=== PATIENT | female | born 1955 | race Caucasian/White ===

== ENCOUNTER 2018-03-17 14:26 | Emergency (ER) | payer OTHER ==
[~2018-03-17] VITALS: Ht 157.5 cm; Wt 79.4 kg
--- NOTE | 2018-03-17 15:48 | PHYS DOC ---
Adult General Chief Complaint Chief Complaint: UPPER EXTREMITY INJURY HPI HPI 62-year-old female presents to ER after a fall off of a ladder. She reports she was approximately 3-4 feet up on a ladder when the ladder slipped causing her to fall onto her left side. Patient reports she did strike her left forehead on the floor denies any loss of consciousness. Patient denies any headache, dizziness, lightheadedness, tinnitus, vision changes, or neck pain. Patient reports she fell onto her left arm and has deformity to her left wrist. She reports she took ibuprofen at 6:30 this morning. Pain medication was offered during initial encounter and patient preferred no medication at this time. Patient had rings on her left hand which were removed. Pt is uncertain of last update on tetanus. Review of Systems Review of Systems Constitutional: Denies lethargy Eyes: Denies change in visual acuity or eye pain [] HENT: Denies nosebleed Respiratory: Denies cough or shortness of breath [] Cardiovascular: Denies CP/rib pain GI: Denies abdominal pain, nausea, vomiting : Denies incontinence Musculoskeletal: Denies back/neck pain. Reports lt shoulder/elbow/wrist pain- deformity lt wrist Integument: Reports abrasion lt wrist/palm of hand where she hit the ladder Neurologic: Denies headache, focal weakness or sensory changes. Denies dizziness or lightheadedness All other systems were reviewed and found to be within normal limits, except as documented in this note. Current Medications Current Medications Current Medications Medications (Trade) Dose Ordered Sig/June Start Time Stop Time Status Last Admin Dose Admin Diphtheria/ Tetanus/Acell Pertussis (Boostrix) 0.5 ml ONCE ONCE 03/17/18 20:30 03/17/18 20:31 DC 03/17/18 20:20 0.5 ML Fentanyl Citrate (Fentanyl 2ml Vial) 100 mcg 1X ONCE 03/17/18 19:30 03/17/18 19:31 DC 03/17/18 19:21 100 MCG Lidocaine HCl (Xylocaine 1% Pf 30ml Vial) 30 ml 1X ONCE 03/17/18 16:45 03/17/18 16:46 DC 03/17/18 19:19 30 ML Allergies Allergies Allergies Coded Allergies Type Severity Reaction Last Updated Verified No Known Drug Allergies 03/17/18 No Physical Exam Physical Exam Constitutional: Well developed, well nourished, no acute distress, non-toxic appearance. [] HENT: Normocephalic, hematoma with swelling lt forehead- no bleeding/open wound. Bilateral ears normal, oropharynx moist, no oral/dental injury, nose normal. [] Eyes: 3mm bilat. PERRLA, EOMI- no eye pain with movement, no nystagmus, conjunctiva normal, no discharge. [] Neck: Normal range of motion, no tenderness- no midline cervical tenderness on palp. no palp. deformity/crepitus, supple Cardiovascular:Heart rate regular rhythm, no murmur [] Lungs & Thorax: Bilateral breath sounds clear to auscultation. Resp. equal/ nonlabored. No chest wall tenderness or visible injury Abdomen: Bowel sounds normal, soft/nondistended, no tenderness, no masses, no pulsatile masses. [] Skin: Warm, dry, no erythema, no rash. [] Back: No tenderness on palp- no midline spinal tenderness or palp. deformity- no visible injury, no CVA tenderness. [] Extremities: Pelvis stable/nontender. Deformity lt wrist/forearm- abrasion to lt posterior wrist and small abrasion lt palm- no active bleeding, no cyanosis, decreased ROM lt wrist- cap. refill brisk all fingers and able to flex/extend all fingers lt hand. Tender to palp. lt elbow with no deformity and ROM intact. Tender palp. lt shoulder with no palp. deformity- able to perform ROM. ROM intact in other extremities with no c/o pain or abnorm. exam findings. Neurologic: Alert and oriented X 3, normal motor function, normal sensory function, no focal deficits noted. [] Psychologic: Affect normal, judgement normal, mood normal. [] Current Patient Data Vital Signs Vital Signs Date Time Temp Pulse Resp B/P (MAP) Pulse Ox O2 Delivery O2 Flow Rate FiO2 03/17/18 16:11 96.9 96 22 122/72 (89) Room Air 96.9 EKG EKG [] Radiology/Procedures Radiology/Procedures PROCEDURE: CT HEAD AND CERVICAL SPINE WO EXAM: Head and cervical spine CT without contrast. HISTORY: Fall. TECHNIQUE: Computed tomographic images of the head and cervical spine were obtained without contrast. *One or more of the following individualized dose reduction techniques were utilized for this examination: 1. Automated exposure control. 2. Adjustment of the mA and/or kV according to patient size. 3. Use of iterative reconstruction technique. COMPARISON: None. FINDINGS: Head: There is no intracranial hemorrhage. There is no mass effect or midline shift. There is no hydrocephalus. The lainez-white matter differential pattern is intact. There is a small left frontal scalp soft tissue hematoma. The orbits are unremarkable. There is a small left maxillary sinus mucous retention cyst. The mastoid air cells are clear. No calvarial lesion is seen. Cervical spine: There is minimal anterolisthesis of C4 on C5. There is degenerative endplate remodeling with disc space narrowing predominantly at C3-C4. There is facet arthropathy at multiple levels. There is no suspicious osseous lesion. There is no fracture. At C2-C3, there is mild left facet arthropathy. There is no stenosis. At C3-C4, there is a disc bulge and endplate osteophytosis. There is uncovertebral arthropathy. There is severe bilateral foraminal stenosis. At C4-C5, there is a disc bulge and endplate remodeling. There is mild left facet arthropathy. There is right uncovertebral arthropathy. There is mild right foraminal stenosis. At C5-C6, there is a disc bulge and endplate remodeling. There is left uncovertebral arthropathy. There is no stenosis. At C6-C7, there is no stenosis. IMPRESSION: 1. No acute intracranial finding or evidence of acute cervical spine trauma. 2. Small left frontal scalp soft tissue hematoma. 3. Multilevel degenerative change of the cervical spine, resulting in severe bilateral foraminal stenosis at C3-C4 and mild right foraminal stenosis at C4-C5. Electronically signed by: Marlin Abernathy MD (03/17/2018 4:47 PM) [place] [id number] DICTATED and SIGNED BY: MARLIN ABERNATHY MD DATE: 03/17/18 1642 PROCEDURE: ELBOW LEFT 2V EXAM: Left shoulder, 2 views; left elbow, 2 views; left wrist, 2 views. HISTORY: Fall. COMPARISON: None. FINDINGS: Left wrist: 2 views of the left wrist are obtained. There is a severely comminuted and displaced intra-articular fracture of the distal radial metaphysis. There is also a displaced fracture of the ulnar styloid and widening of the distal radial ulnar joint space. There is surrounding soft tissue swelling. Left shoulder: 2 views of the left shoulder obtained. There is no fracture, dislocation or subluxation. Left elbow: 2 views of the left elbow are obtained. There is no fracture, dislocation or subluxation. There is no joint effusion. IMPRESSION: Severely comminuted displaced distal radial metaphyseal fracture and displaced ulnar styloid fracture with subluxation or dislocation of the distal radioulnar joint. Electronically signed by: Marlin Abernathy MD (03/17/2018 4:21 PM) [place] [id number] DICTATED and SIGNED BY: MARLIN ABERNATHY MD DATE: 03/17/18 1620 PROCEDURE: CT LUMBAR SPINE WO CONTRAST CT lumbar spine without intravenous contrast History: Fall. Low back pain. Technique: Noncontrast CT of the lumbar spine was performed. Axial, sagittal, and coronal reconstructions were obtained. Exposure: One or more of the following individualized dose reduction techniques were utilized for this examination: 1. Automated exposure control 2. Adjustment of the mA and/or kV according to patient size 3. Use of iterative reconstruction technique Findings: 5 lumbar type vertebral bodies are present. There is moderate compression involving the L4 vertebral body. Fracture lines are evident, suggesting that fracture is recent. No significant retropulsion of fragments into the spinal canal is identified. There does appear to be increased density posterior to the vertebral body, could represent extruded disc material or possibly small epidural hematoma. There is thought to be no more than mild narrowing of the spinal canal at the superior L4 level. The superior endplate of L3 demonstrates concavity, although this is thought more likely to represent Schmorl's node. Multilevel degeneration is seen with multilevel facet hypertrophy as well as multilevel degenerative disc disease. Impression: 1. Moderate compression of the L4 vertebral body, thought to be acute versus subacute in chronology. 2. There does appear to be mildly dense material posterior to the compressed vertebral body at L4 in the anterior epidural space. This could represent extruded disc material or might represent epidural hematoma. There is at most mild spinal canal narrowing at superior L4 level.. Electronically signed by: Gonzales Lundberg MD (03/17/2018 5:54 PM) [facility] DICTATED and SIGNED BY: GONZALES LUNDBERG MD DATE: 03/17/18 3324 PROCEDURE: WRIST 2V LEFT History: Postreduction. Comparison: March 17, 2018. Findings: PA and lateral views of the left wrist. There has been placement of extremity in fiberglass cast. Alignment of comminuted, displaced distal radial fracture does not appear appreciably changed. Ulnar styloid fracture is also seen. There is persistent widening of the distal radioulnar joint. Impression: Interval placement of extremity in cast. No significant change in alignment of the wrist. Electronically signed by: Gonzales Lundberg MD (03/17/2018 8:09 PM) [facility] DICTATED and SIGNED BY: GONZALES LUNDBERG MD DATE: 03/17/182006 Course & Med Decision Making Course & Med Decision Making Pertinent Imaging studies reviewed. (See chart for details) 1810: Re-evaluation and pt had staff assist her to chair- she denies numbness/ tingling in bilat. LEs. Pt has not wanted pain medication when offered mult. times since arriving to ER. She remains neuro/vascular intact in lt upper extremity- able to move all fingers. Discussed CT results showing compression at L4. 0: Dr. Barkley at bedside for Ginger block reduction/splint Dragon Disclaimer Dragon Disclaimer This electronic medical record was generated, in whole or in part, using a voice recognition dictation system. Departure Departure Impression: Primary Impression: Wrist fracture, left Additional Impressions: Head injury Fall Compression fracture of lumbar vertebra Disposition: HOME, SELF-CARE Condition: STABLE Referrals: NO PCP (PCP) GABBY IRBY MD Patient Instructions: Back, Compression Fracture, Fall Prevention and Home Safety, Head Injury, Adult, Wrist Fracture Additional Instructions: Call tomorrow and schedule appointment for follow-up with Dr. Irby orthopedics. Elevate left arm on pillow and monitor fingertips as discussed for circulation issues. Wear the sling to support the left arm. You are being righted with narcotic pain medication this does increase her risk for falls-slow position changes. Do not drive or drink alcohol while taking this medication. You can take ibuprofen as directed on container as directed. You were updated on your tetanus vaccine while in the ER. Scripts Hydrocodone/Apap 5-325 (NORCO 5-325 TABLET) 1 Each Tablet 1 TAB PO PRN Q6HRS PRN for PAIN, #8 TAB 0 Refills Prov: ARPIT MINOR APRN 03/17/18 Problem Qualifiers ARPIT MINOR APRN Mar 17, 2018 15:48
[2018-03-17 16:11] VITALS: BP 122/72
--- NOTE | 2018-03-17 16:25 | RAD ---
EXAM: Left shoulder, 2 views; left elbow, 2 views; left wrist, 2 views. HISTORY: Fall. COMPARISON: None. FINDINGS: Left wrist: 2 views of the left wrist are obtained. There is a severely comminuted and displaced intra-articular fracture of the distal radial metaphysis. There is also a displaced fracture of the ulnar styloid and widening of the distal radial ulnar joint space. There is surrounding soft tissue swelling. Left shoulder: 2 views of the left shoulder obtained. There is no fracture, dislocation or subluxation. Left elbow: 2 views of the left elbow are obtained. There is no fracture, dislocation or subluxation. There is no joint effusion. IMPRESSION: Severely comminuted displaced distal radial metaphyseal fracture and displaced ulnar styloid fracture with subluxation or dislocation of the distal radioulnar joint. Electronically signed by: Marlin Limon MD (03/17/2018 4:21 PM) [facility]
[2018-03-17] MEDS ORDERED: fentaNYL PF VIAL 100 MCG/2 ML VIAL IV ONE ×3 (16:45→19:30)
[2018-03-17] MEDS ORDERED: LIDOCAINE 1% PF 30 ML VIAL. INJ ONE (16:45)
--- NOTE | 2018-03-17 16:50 | RAD ---
EXAM: Head and cervical spine CT without contrast. HISTORY: Fall. TECHNIQUE: Computed tomographic images of the head and cervical spine were obtained without contrast. *One or more of the following individualized dose reduction techniques were utilized for this examination: 1. Automated exposure control. 2. Adjustment of the mA and/or kV according to patient size. 3. Use of iterative reconstruction technique. COMPARISON: None. FINDINGS: Head: There is no intracranial hemorrhage. There is no mass effect or midline shift. There is no hydrocephalus. The lainez-white matter differential pattern is intact. There is a small left frontal scalp soft tissue hematoma. The orbits are unremarkable. There is a small left maxillary sinus mucous retention cyst. The mastoid air cells are clear. No calvarial lesion is seen. Cervical spine: There is minimal anterolisthesis of C4 on C5. There is degenerative endplate remodeling with disc space narrowing predominantly at C3-C4. There is facet arthropathy at multiple levels. There is no suspicious osseous lesion. There is no fracture. At C2-C3, there is mild left facet arthropathy. There is no stenosis. At C3-C4, there is a disc bulge and endplate osteophytosis. There is uncovertebral arthropathy. There is severe bilateral foraminal stenosis. At C4-C5, there is a disc bulge and endplate remodeling. There is mild left facet arthropathy. There is right uncovertebral arthropathy. There is mild right foraminal stenosis. At C5-C6, there is a disc bulge and endplate remodeling. There is left uncovertebral arthropathy. There is no stenosis. At C6-C7, there is no stenosis. IMPRESSION: 1. No acute intracranial finding or evidence of acute cervical spine trauma. 2. Small left frontal scalp soft tissue hematoma. 3. Multilevel degenerative change of the cervical spine, resulting in severe bilateral foraminal stenosis at C3-C4 and mild right foraminal stenosis at C4-C5. Electronically signed by: Marlin Limon MD (03/17/2018 4:47 PM) [place] [id number]
--- NOTE | 2018-03-17 17:57 | RAD ---
CT lumbar spine without intravenous contrast History: Fall. Low back pain. Technique: Noncontrast CT of the lumbar spine was performed. Axial, sagittal, and coronal reconstructions were obtained. Exposure: One or more of the following individualized dose reduction techniques were utilized for this examination: 1. Automated exposure control 2. Adjustment of the mA and/or kV according to patient size 3. Use of iterative reconstruction technique Findings: 5 lumbar type vertebral bodies are present. There is moderate compression involving the L4 vertebral body. Fracture lines are evident, suggesting that fracture is recent. No significant retropulsion of fragments into the spinal canal is identified. There does appear to be increased density posterior to the vertebral body, could represent extruded disc material or possibly small epidural hematoma. There is thought to be no more than mild narrowing of the spinal canal at the superior L4 level. The superior endplate of L3 demonstrates concavity, although this is thought more likely to represent Schmorl's node. Multilevel degeneration is seen with multilevel facet hypertrophy as well as multilevel degenerative disc disease. Impression: 1. Moderate compression of the L4 vertebral body, thought to be acute versus subacute in chronology. 2. There does appear to be mildly dense material posterior to the compressed vertebral body at L4 in the anterior epidural space. This could represent extruded disc material or might represent epidural hematoma. There is at most mild spinal canal narrowing at superior L4 level.. Electronically signed by: Gonzales Donnelly MD (03/17/2018 5:54 PM) [facility]
--- NOTE | 2018-03-17 20:12 | RAD ---
History: Postreduction. Comparison: March 17, 2018. Findings: PA and lateral views of the left wrist. There has been placement of extremity in fiberglass cast. Alignment of comminuted, displaced distal radial fracture does not appear appreciably changed. Ulnar styloid fracture is also seen. There is persistent widening of the distal radioulnar joint. Impression: Interval placement of extremity in cast. No significant change in alignment of the wrist. Electronically signed by: Gonzales Donnelly MD (03/17/2018 8:09 PM) [facility]
[2018-03-17] MEDS ORDERED: DIPHTH,PERTUSS(ACELL),TET TOX 0.5 ML DISP.SYRIN. VAX IM ONE ×2 (20:17→20:30)
[2018-03-17] MEDS ORDERED: HYDR-971 PO (20:21)
[2018-03-19] MEDS ORDERED: OXYC-323 PO (16:45)
== END 2018-03-17 20:30 | disposition home or self-care (01) ==
LOC: ER 14:26
DX: S52.612A Displaced fracture of left ulna styloid process, initial encounter for closed fracture (principal); S59.202A Unspecified physeal fracture of lower end of radius, left arm, initial encounter for closed fracture; S32.049A Unspecified fracture of fourth lumbar vertebra, initial encounter for closed fracture; S09.90XA Unspecified injury of head, initial encounter; W11.XXXA Fall on and from ladder, initial encounter; Y93.89 Activity, other specified; Y92.89 Other specified places as the place of occurrence of the external cause; Y99.8 Other external cause status
CPT/HCPCS: 25675; 70450; 72125; 72131; 73030; 73070; 73100; 90471; 90715; 96374; 96376; 99284; J3010

== ENCOUNTER → 2018-03-19 | Day surgery (SDC) | payer OTHER ==
[~2018-03-19] MED LIST: BUPIVACAINE MPF 0.5% 30 ML VIAL. ONE; DEXAMETHASONE SOD PHOS 20 MG/5 ML VIAL. ONE; FAMOTIDINE 20 MG/2 ML VIAL ONE; HYDR-971 PO; HYDROmorphone 2 MG/ML VIAL IV PRN; IV RINGERS,LACTATED 1000ML 1,000 ML IV ONE; IV RINGERS,LACTATED 1000ML 1,000 ML IV SCH; LIDOCAINE 1% PF 2 ML VIAL. ID PRN; LIDOCAINE 2% PF Vial for OR 5 ML VIAL. ONE; MIDAZOLAM HCL/PF 2 MG/2 ML VIAL. ONE; MORPHINE SULFATE 2 MG/ML VIAL. IV PRN; ONDANSETRON PF 4 MG/2 ML VIAL. IV PRN; ONDANSETRON PF 4 MG/2 ML VIAL. ONE; OXYC-323 PO; PROCHLORPERAZINE 10 MG/2 ML VIAL. IV PRN; PROPOFOL 20 ML IV ONE; ROCURONIUM 50 MG/5 ML VIAL. ONE; SEVOFLURANE 61 TO 120 MINUTES. IH ONE; SUCCINYLCHOLINE 200 MG/10 ML VIAL. ONE; fentaNYL PF VIAL 100 MCG/2 ML VIAL IV PRN; fentaNYL PF VIAL 100 MCG/2 ML VIAL ONE
--- NOTE | 2018-03-19 16:15 | PREOP HP ---
DATE OF SERVICE: 03/19/2018 CHIEF COMPLAINT: Left distal radius fracture. 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 She said she was at the store on [address] where they have some fairly smooth polished concrete and a ladder that does not lock like it was normally used to, apparently as she was stocking the shelves, the ladder started to go out from under her. She was unable to hang on and fell on her outstretched left wrist. She denies any other injuries. No loss of consciousness associated with the injury, but [facility] with this injury and was splinted. I actually gave the option of admitting her and doing surgery the next day. She had eaten right before the injury itself and elected actually for splinting and going home, coming back on an outpatient basis. PAST MEDICAL HISTORY: Significant for psoriatic arthritis and breathing problems. She said that she has had difficulty with breathing in the past and was concerned about general anesthesia. ALLERGIES: SHE LISTS AN ALLERGY TO SULFA. MEDICATIONS: Only medication that she is really taking for the psoriatic arthritis is ibuprofen. FAMILY HISTORY: Noncontributory. SOCIAL HISTORY: Denies alcohol or drug use. REVIEW OF SYSTEMS: Significant for the left wrist injury. Again, denies any chest pain, shortness of breath, neck or back pain, radiating pain in the extremities, any loss of consciousness, visual changes or constitutional symptoms. PHYSICAL EXAMINATION: VITAL SIGNS: Per admission sheet. HEENT: Atraumatic, normocephalic. HEART: Regular rate and rhythm. LUNGS: Clear to auscultation bilaterally. ABDOMEN: Benign. EXTREMITIES: Examination of the left wrist reveals obvious deformity of the wrist. No evidence of skin compromise or open injury. She does have some slight paresthesia in the median nerve distribution. No motor function abnormalities, just aside from limitation secondary to pain. She has normal examination of the contralateral wrist, bilateral elbows and shoulders. X-rays of the left wrist show a completely displaced, shortened, overriding fracture of the distal radius, intra-articular in nature with involvement of the distal radial ulnar joint. No carpal bone abnormalities. IMPRESSION: Displaced shortened intra-articular left distal radius fracture with distal radial ulnar joint disruption. TREATMENT PLAN: I went over with her that this is a very severe injury. She had initially voiced a concern that she would like to do this under local anesthesia Ginger block and not undergo general anesthesia, but I had to talk with the anesthesia provider about these concerns, but told her that I do not think that based on the severity of her injury and the likely timeframe required to fix this, that Vanderwagen block is going to be adequate to treat her injury. Furthermore, I do not think it is going to give adequate pain relief to the bones on its own and I think the timeframe allowable for the Vanderwagen block is not going to be adequate either. I really was so adamant about this that I feel like that is her preference that I need to have her seek treatment elsewhere and offer to help find her a hand surgeon that could do it under those conditions if necessary. After talking to the anesthesia provider, all her questions were answered and concerns were laid. She is aware of the severity of this injury, possibility of nerve or blood vessel damage, nonhealing, stiffness, continued pain, instability, medical or other anesthetic complications among others. All her questions were answered. She wishes to proceed with surgical evaluation and treatment, which will occur today. GABBY GRAJEDA MD DR: CANDI/xiomara JOB#: [id number] / [id number]
--- NOTE | 2018-03-19 16:44 | DISCH ---
DISCHARGE INSTRUCTIONS Condition on Discharge Condition on Discharge: Stable Activity After Discharge Activity Instructions for Disc: Other, see below (fine motor use left hand only , may manipulate silverware gently type on a keyboard no grasping or lifting) Other activity instructions: May return to work 03/22/2018 with no use of left arm Diet after Discharge Diet after Discharge: Regular Wound Incision Care Wound/Incision Care: Ice to area for comfort, Keep wound elevated, Do not change dressing Contacting the DR. after DC Call your doctor for: Concerns you may have Follow-Up Follow up with: Surekha 10 days GABBY GRAJEDA MD Mar 19, 2018 16:44
[2018-03-19 17:45] VITALS: BP 120/75
--- NOTE | 2018-03-19 18:47 | PDOC4 ---
Operative Note Operative Note Date of surgery: 03/19/2018 Preoperative diagnosis: Displaced comminuted intra-articular distal radius fracture with distal radial ulnar joint disruption Postoperative diagnosis: Same Operative procedure: Operative reduction internal fixation comminuted 3 part intra-articular distal radius fracture Surgeon: Surekha Anesthesia: Gen. 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 She had eaten soon before the injury and therefore could not have surgery that night she elected to go home and come in on an outpatient basis for surgical evaluation and treatment. I had explained to her preoperatively the severe nature of her injury the disruption of the joint surface disruption of the joint in her wrist that allowed pronation supination of the forearm, the recommended realignment and plate and screw fixation of the radius bone possible additional procedure for the distal radial ulnar joint if necessary and the expected protection of that joint as well as likely some extensive physical therapy. We also talked about the possibility of infection nonhealing nerve or blood vessel damage continued pain instability medical or other anesthetic complications among others all her questions were answered she wishes to proceed with surgical evaluation and treatment which will occur today Operative text: Patient was identified procedure verified patient placed in the supine position on the operating table. After adequate amounts of general anesthesia were administered left upper extremity was prepped and draped in standard sterile fashion with a tourniquet on the upper arm and after timeout was performed patient procedure identified and verified the left upper extremity was exsanguinated by Esmarch bandage tourniquet inflated to 350 mmHg and a standard José approach was carried out to the distal radius and subperiosteal dissection carried out. Careful reduction was carried out to achieve anatomic alignment at the joint surface and of the radial tuberosity fragment. A narrow standard length Ruben distal radius volar locking plate was selected and placed under fluoroscopic guidance for positioning and a single shaft screw was placed in a nonlocking fashion in the sliding hole to allow find adjustment. After further reduction attempts resulted in near anatomic alignment distal screws were placed under fluoroscopic guidance starting at the radial styloid and down across the ulnar portion of the joint ensuring that no joint penetration occurred. Likewise proximal locking screws were placed under fluoroscopic guidance to ensure proper positioning and length. Finally when the comminuted fragments and joint surface were all reduced properly 2 additional nonlocking shaft screws were placed and reduction and hardware placement were again checked under multiple fluoroscopic views again assuring note joint penetration into place and excellent positioning and length of screws verified. Thorough irrigation carried out normal saline solution closure accomplished with buried Vicryl suture subcuticular Monocryl Steri-Strips and Mastisol followed by a well-padded Ortho-Glass volar splint. Fingers were noted be warm pink find deflation of tourniquet patient was returned recovery room in stable condition having tolerated procedure well GABBY GRAJEDA MD Mar 19, 2018 18:47
== END | disposition home or self-care (01) ==
LOC: SURG 11:20
PROVIDERS: ATTEND Orthopaedic Surgery
DX: S52.572A Other intraarticular fracture of lower end of left radius, initial encounter for closed fracture (principal); L40.50 Arthropathic psoriasis, unspecified; X58.XXXA Exposure to other specified factors, initial encounter; Y93.89 Activity, other specified; Y92.89 Other specified places as the place of occurrence of the external cause; Y99.8 Other external cause status; Z88.2 Allergy status to sulfonamides; Z79.899 Other long term (current) drug therapy
CPT/HCPCS: 25609; 76000; C1713; J0330; J0690; J1100; J2001; J2250; J2405; J2704; J3010; J3490; J7120